=== PATIENT | male | born 1955 | race Caucasian/White ===

== ENCOUNTER 2018-08-07 20:04 | Emergency (ER) | payer OTHER, MEDICAID ==
[~2018-08-07] VITALS: Ht 185.4 cm; Wt 75.4 kg
[2018-08-07 20:11] VITALS: Ht 185.4 cm; Wt 75.4 kg
[2018-08-07] MEDS ORDERED: ACETAMINOPHEN 500 MG TAB PO STA (21:43)
[2018-08-07] MEDS ORDERED: LIDOCAINE 2% (MDV) 20 ML INJ INJ ONE (22:00)
[2018-08-07] MEDS ORDERED: IBUP-1542 PO (23:07)
[2018-08-07] MEDS ORDERED: ACET500C5 PO (23:07)
[2018-08-07 23:51] VITALS: BP 135/83; PULSE 52; RESP 18
--- NOTE | 2018-08-07 23:57 | ERD ---
ER Documentation Chief Complaint Chief Complaint LEFT HAND LAC @ 1530 TODAY HPI This is a 63-year-old male patient presents to the emergency room with laceration to left hand that occurred today at approximately 1530 while he was loading lumber and a screw on one of the pieces of lumber cut the side of his hand. Bleeding controlled, sensation intact, last tetanus shot 4 years ago. Medical history significant for hypercholesteremia. It has primary care doctor for follow-up. ROS All systems reviewed and are negative except as per history of present illness. Medications Home Meds Active Scripts Ibuprofen* (Motrin*) 600 Mg Tab, 600 MG PO Q6, #30 TAB Prov:DAV MILLER MARKET RESEARCH SPECIALIST 08/07/18 Acetaminophen* (Tylophen*) 500 Mg Capsule, 2 CAP PO Q8H PRN for PAIN AND OR ELEVATED TEMP, #20 CAP Prov:DAV MILLER MARKET RESEARCH SPECIALIST 08/07/18 Allergies Allergies: Coded Allergies: No Known Allergy (Unverified , 08/07/18) PMhx/Soc History of Surgery: Yes (lt knee) Anesthesia Reaction: No Hx Neurological Disorder: No Hx Respiratory Disorders: No Hx Cardiac Disorders: No Hx Psychiatric Problems: No Hx Miscellaneous Medical Probl: Yes (high cholesterol ) Hx Alcohol Use: No Hx Substance Use: No Hx Tobacco Use: No Smoking Status: Never smoker FmHx Family History: No diabetes, No coronary disease, No other Physical Exam Vitals Vital Signs Date Temp Pulse Resp B/P (MAP) Pulse Ox O2 O2 Flow FiO2 Time Delivery Rate 08/07/18 97.6 49 19 162/71 96 20:11 (101) Physical Exam Const: No acute distress Head: Atraumatic Eyes: Normal Conjunctiva ENT: Normal External Ears, Nose and Mouth. Neck: Full range of motion. No meningismus. Resp: Clear to auscultation bilaterally Cardio: Regular rate and rhythm, no murmurs Ext: No cyanosis, or edema. Right hand without pain, FROM, sensation intact. 6 cm x 0.4 cm laceration to lateral/ulnar aspect of 5th metatarsal Neur: Awake and alert Psych: Normal Mood and Affect Results 24 hrs Current Medications Medications Dose Sig/Maximilian Start Time Status Last (Trade) Ordered Route PRN Stop Time Admin Dose Reason Admin Lidocaine 20 ml ONCE ONCE 08/07/18 DC (Xylocaine INJ 22:00 2% (Mdv) 20 08/07/18 22:01 ml) 1,000 mg ONCE STAT 08/07/18 DC 08/07/18 Acetaminophen PO 21:43 22:02 (Tylenol 08/07/18 21:48 Tab) Procedures/MDM This 63-year-old male patient presents emergency room with complaint of laceration to left hand. ED COURSE: The patient was stable throughout ED course. DIAGNOSTIC IMAGING: Not indicated. PROCEDURES: Laceration Repair by me: Anesthesia: 2% lidocaine locally Location: right lateral 5th metacarpal Tendon/Joint/Nerves: No injury, FROM, sensation intact Foreign body: None detected after copious irrigation and exploration Technique: 8 Simple Interrupted Sutures, 4-0 ethilon Complexity: No subcutaneous sutures/mucosal repair/edge excision Post Closure Length: 6 cm Patient's bleeding was easily controlled. MEDICATIONS GIVEN: Tylenol Patient tolerated medication well with no adverse reactions. Patient reported improvement in pain. MDM: No evidence of compartment syndrome, neurologic injury, vascular injury, open joint, tendon laceration, or foreign body. Bulky gauze dressing and volar hand splint with sling placed. She was provided with instructions on care of wound, follow-up, reasons to return to the emergency department. Patient is appropriate for outpatient follow up. +csm at time of discharge DISPOSITION: The patient has been discharge home to follow-up with community physician. Departure Diagnosis: Primary Impression: Laceration Condition: Stable Patient Instructions: Laceration, Hand Referrals: DOCTOR,NOT ON STAFF (PCP) [facility] YOU HAVE RECEIVED A MEDICAL SCREENING EXAM AND THE RESULTS INDICATE THAT YOU DO NOT HAVE A CONDITION THAT REQUIRES URGENT TREATMENT IN THE EMERGENCY DEPARTMENT. FURTHER EVALUATION AND TREATMENT OF YOUR CONDITION CAN WAIT UNTIL YOU ARE SEEN IN YOUR DOCTORS OFFICE WITHIN THE NEXT 1-2 DAYS. IT IS YOUR RESPONSIBILITY TO MAKE AN APPOINTMENT FOR FOLOW-UP CARE. IF YOU HAVE A PRIMARY DOCTOR --you should call your primary doctor and schedule an appointment IF YOU DO NOT HAVE A PRIMARY DOCTOR YOU CAN CALL OUR PHYSICIAN REFERRAL HOTLINE AT IF YOU CAN NOT AFFORD TO SEE A PHYSICIAN YOU CAN CHOSE FROM THE FOLLOWING [facility] [address] [facility]. [facility] [address] [facility] [facility] [address] [facility] [facility] [address] [facility]. [facility] [address] [facility]. [facility] [address] Additional Instructions: Thank you very much for allowing us to participate in your care. Your health and safety is our top priority at [facility]. Call your primary care doctor TOMORROW for an appointment during the next 2-4 days and bring all the information and medications prescribed. Have prescriptions filled and follow precisely the directions on the label. If the symptoms get worse and your provider is unavailable, return to the Emergency Department immediately. YOU NEED TO HAVE SUTURES REMOVED IN 10 DAYS, YOU MAY GO TO YOUR DOCOTR, AN URGENT CARE, OR THIS ER. KEEP SUTURES CLEAN AND DRY. USE SPLINT TO PREVENT EXTRA MOVEMENT OF HAND. USE IBUPROFEN OR TYLENOL FOR PAIN. DAV MILLER NP August 07, 2018 23:57
== END 2018-08-07 23:53 | disposition home or self-care (01) ==
LOC: FTE 20:04
DX: S61.217A Laceration without foreign body of left little finger without damage to nail, initial encounter (principal); W26.8XXA Contact with other sharp object(s), not elsewhere classified, initial encounter

== ENCOUNTER 2018-08-16 14:17 | Emergency (ER) | payer OTHER, MEDICAID ==
[~2018-08-16] VITALS: Ht 177.8 cm; Wt 75.0 kg
[~2018-08-16 14:17] MED LIST: ACET500C5 PO; IBUP-1542 PO
[2018-08-16 14:34] VITALS: BP 132/67; PULSE 54; RESP 19; Ht 177.8 cm; Wt 75.0 kg
--- NOTE | 2018-08-16 16:41 | ERD ---
ER Documentation Chief Complaint Chief Complaint SUTURE REMOVAL HPI 63-year-old male presents for evaluation for suture removal of his left hand. Sustained a laceration 10 days ago. He has no complaints of weakness, deficits, redness, fevers or bleeding or additional complaints. Patient is requesting a tetanus booster. Previous visit stated four years. He believes it is closer to greater than 5 years. ROS All systems reviewed and are negative except as per history of present illness. Medications Home Meds Active Scripts Ibuprofen* (Motrin*) 600 Mg Tab, 600 MG PO Q6, #30 TAB Prov:DAV MILLER RUG CUTTER HELPER 08/07/18 Acetaminophen* (Tylophen*) 500 Mg Capsule, 2 CAP PO Q8H PRN for PAIN AND OR ELEVATED TEMP, #20 CAP Prov:DAV MILLER NP 08/07/18 Allergies Allergies: Coded Allergies: No Known Allergy (Unverified , 08/07/18) PMhx/Soc History of Surgery: Yes (lt knee) Anesthesia Reaction: No Hx Neurological Disorder: No Hx Respiratory Disorders: No Hx Cardiac Disorders: No Hx Psychiatric Problems: No Hx Miscellaneous Medical Probl: Yes (high cholesterol ) Hx Alcohol Use: No Hx Substance Use: No Hx Tobacco Use: No FmHx Family History: No diabetes, No coronary disease, No other Physical Exam Vitals Vital Signs Date Temp Pulse Resp B/P (MAP) Pulse Ox O2 O2 Flow FiO2 Time Delivery Rate 08/16/18 98.8 54 19 132/67 94 14:34 (88) Physical Exam Const: No acute distress Head: Atraumatic Eyes: Normal Conjunctiva ENT: Normal External Ears, Nose and Mouth. Neck: Full range of motion. No meningismus. Resp: Clear to auscultation bilaterally Cardio: Regular rate and rhythm, no murmurs Abd: Soft, non tender, non distended. Normal bowel sounds Skin: No petechiae or rashes Back: No midline or flank tenderness Ext: No cyanosis, or edema. Left hand healing laceration without erythema, bleeding, discharge, restricted range of motion or deficits. Neur: Awake and alert Psych: Normal Mood and Affect Procedures/MDM Sutures removed without complications. Tetanus booster given. Patient has a satisfactorily healing left hand laceration without signs of infection, ischemia or deficits.. He will be discharged home with return precautions for redness, fevers, bleeding, new or worsening symptoms. Departure Diagnosis: Primary Impression: Encounter for removal of sutures Condition: Stable Patient Instructions: Suture Removal, No Complication Referrals: DOCTOR,NOT ON STAFF (PCP) SCOTTY SORIANO MD August 16, 2018 16:41
[2018-08-16] MEDS ORDERED: DIPHTH/TET/ACEL PERTUSS (ADULT) 0.5 ML VIAL IM* ONE (17:00)
== END 2018-08-16 18:15 | disposition left against medical advice (07) ==
LOC: FTE 14:17
DX: Z48.02 Encounter for removal of sutures (principal)
CPT/HCPCS: 90471; 90715